=== PATIENT | female | born 1995 | race Caucasian/White ===

== ENCOUNTER → 2024-09-30 08:39 | Outpatient (REF) | payer OTHER, SELFPAY | LOC: PNTC 08:39 | PROVIDERS: ATTENDING PHYSICIAN Obstetrics & Gynecology | DX: O36.8390 Maternal care for abnormalities of the fetal heart rate or rhythm, unspecified trimester, not applicable or unspecified (principal) | CPT/HCPCS: 59025; 76815 ==

== ENCOUNTER 2024-10-02 21:56 | Observation (INO) | payer OTHER, SELFPAY ==
[2024-10-02 22:02] VITALS: BMI 33.4
[2024-10-02 22:18] VITALS: BP 116/78
== END 2024-10-02 22:56 | disposition home or self-care (01) ==
LOC: LDRP 21:56
PROVIDERS: ADMITTING PHYSICIAN Obstetrics & Gynecology; FAMILY PHYSICIAN Family Medicine
DX: O47.1 False labor at or after 37 completed weeks of gestation (principal); Z3A.40 40 weeks gestation of pregnancy; O99.820 Streptococcus B carrier state complicating pregnancy; O98.313 Other infections with a predominantly sexual mode of transmission complicating pregnancy, third trimester; A60.00 Herpesviral infection of urogenital system, unspecified
CPT/HCPCS: 36415; 86850; 86900; 86901; G0378

== ENCOUNTER 2024-10-04 06:45 | Inpatient (IN) | payer OTHER, SELFPAY ==
[2024-10-04 07:02] VITALS: BP 130/76; BMI 32.3
[2024-10-04] MEDS: LR 1000 IV ×3 (07:30→13:52)
[2024-10-04 08:17] LABS: % Basophils 0.4 % (0-2); % Eosinophils 0.3 % (0-6); % Immature Granulocytes 0.9 % (0-0.5); % Lymphocytes 12.5 % (20.5-51.1); % Monocytes 5.5 % (1.7-9.3); % Neutrophils 80.4 % (42.2-75.2); Absolute Basophils 0.1 10^3/uL (0-0.2); Absolute Immature Granulocytes 0.1 10^3/uL (0-0.05); Absolute Lymphocytes 1.6 10^3/uL (1.2-3.4); Absolute Monocytes 0.7 10^3/uL (0.1-0.6); Absolute Neutrophils 10.5 10^3/uL (1.4-6.5); Hematocrit 42.1 % (37.0-47.0); Hemoglobin 14.4 g/dL (12.0-16.0); Mean Corp Hgb Conc. 34.2 g/dL (33.0-37.0); Mean Corpuscular Hgb 31.9 pg (27.0-31.0); Mean Corpuscular Volume 93.1 fL (81.0-99.0); Nucleated Red Blood Cells % 0 %; Platelet Count 193 10^3/uL (130-400); Red Blood Cell Count 4.52 10^6/uL (4.20-5.40); Red Cell Dist. Width 12.7 % (11.5-14.5); White Blood Cell Count 13.1 10^3/uL (4.8-10.8)
[2024-10-04] MEDS: PENICILLIN 110 UNITS IV (08:21)
[2024-10-04] MEDS: SUBLIMAZE 100 MCG EPIDURAL (11:35)
[2024-10-04] MEDS: FENTANYL/BUPIVACAINE 100 EPIDURAL (11:35)
[2024-10-04] MEDS: PENICILLIN 55 UNITS IV ×2 (12:32→16:34)
[2024-10-04] MEDS: PITOCIN 30 UNITS/NSS 500 ML IV (18:11)
[2024-10-05 05:29] LABS: Hematocrit 35.5 % (37.0-47.0); Hemoglobin 12.1 g/dL (12.0-16.0)
[2024-10-05] MEDS: MOTRIN 600 MG PO (15:04)
[2024-10-06 10:59] LABS: Syphilis/T. pallidum Ab Reflex Negative (Negative)
== END 2024-10-06 12:56 | disposition home or self-care (01) | DRG 807 ==
LOC: LDRP 06:45
PROVIDERS: Obstetrics & Gynecology; ADMITTING PHYSICIAN Obstetrics & Gynecology
PROC: 10E0XZZ Delivery of Products of Conception, External Approach (ICD-10-PCS; 2024-10-04)
PROC: 0HQ9XZZ Repair Perineum Skin, External Approach (ICD-10-PCS; 2024-10-04)
PROC: 10907ZC Drainage of Amniotic Fluid, Therapeutic from Products of Conception, Via Natural or Artificial Opening (ICD-10-PCS; 2024-10-04)
DX: O48.0 Post-term pregnancy (principal); Z37.0 Single live birth; Z3A.40 40 weeks gestation of pregnancy; O99.824 Streptococcus B carrier state complicating childbirth; O62.1 Secondary uterine inertia; O70.0 First degree perineal laceration during delivery; O69.81X0 Labor and delivery complicated by cord around neck, without compression, not applicable or unspecified
CPT/HCPCS: 85014; 85018; 85025; 86780; 86850; 86900; 86901